=== PATIENT | female | born 1950 | race Caucasian/White ===

== ENCOUNTER 2016-07-05 08:04 | Day surgery (SDC) | payer OTHER, MEDICARE ==
[~2016-07-05 08:04] MED LIST: SKIN ADHESIVE (DERMABOND) 1 EACH TP ONE
[2016-07-05] MEDS ORDERED: LIDOCAINE 1% 5 ML SDV ONE (08:54)
[2016-07-05] MEDS ORDERED: LIDO/BUPIVA 10ML SYR IU ONE (10:30)
[2016-07-05] MEDS ORDERED: ceFAZolin 2 GM/DEXTROSE 100 ML IV ONE (10:30)
[2016-07-05] MEDS ORDERED: CHLORHEXIDINE GLUC HIBICLENS 118 ML BTL TP ONE (10:30)
[2016-07-05] MEDS ORDERED: LIDO/BUPIVA/morphINE 15ML SYR IU ONE (10:30)
[2016-07-05] MEDS ORDERED: MIDAZOLAM 2 MG/2 ML VIAL ONE (10:35)
[2016-07-05] MEDS ORDERED: PROPOFOL 200 MG/20 ML VIAL ONE (10:37)
[2016-07-05] MEDS ORDERED: fentaNYL 100 MCG/2 ML INJ ONE (10:37)
[2016-07-05] MEDS ORDERED: DEXAMETHASONE 4 MG/ML VIAL ONE (10:40)
[2016-07-05] MEDS ORDERED: ONDANSETRON 4 MG/2 ML VIAL ONE (10:40)
[2016-07-05] MEDS ORDERED: ROCURONIUM 50 MG/5 ML VIAL ONE (10:40)
[2016-07-05] MEDS ORDERED: ROPIVACAINE HCL 150 MG/30 ML INJ ONE (10:41)
[2016-07-05] MEDS ORDERED: epHEDrine SULFATE 10 MG/ML SYR ONE ×2 (11:25)
[2016-07-05] MEDS ORDERED: EPINEPHrine 30 MG/30 ML MDV ONE (13:35)
--- NOTE | 2016-07-06 05:26 | GOP ---
[f rep st] OPERATIVE REPORT DATE OF OPERATION: 07/05/2016 SURGEON: Avinash Moyer MD GRID OPERATOR: Tavares Pickens MD, it should be noted no qualified resident was available. community relations assistant was necessary to assist with the biceps tenodesis and repair of the rotator cuff. No qualified resident available. ANESTHESIA: General with interscalene block, Dr. Grossman. PREOPERATIVE DIAGNOSIS: Left shoulder rotator cuff tear, impingement, acromioclavicular joint inflammation and biceps tendinitis. POSTOPERATIVE DIAGNOSIS: Left shoulder rotator cuff tear, impingement, acromioclavicular joint inflammation and biceps tendinitis. PROCEDURE PERFORMED: 1. Arthroscopic repair of rotator cuff utilizing a double row construct. CPT code 11929. 2. Arthroscopic subacromial decompression. CPT code 27354. 3. Arthroscopic distal clavicle excision. CPT code 87991. 4. A mini opened subpectoral biceps tenodesis. CPT code 29153. FINDINGS: 1. Intact articular cartilage of humeral head and glenoid. 2. Intact labrum with fraying of the superior labrum. 3. A bulbous frayed proximal biceps tendon with inflammation. 4. A degenerative tear of the rotator cuff, full-thickness with multiple layers of the tear. 5. Moderate subacromial bursitis with downsloping anterior acromion. 6. Tight acromioclavicular joint. INDICATIONS: Patient is a 66-year-old, with persistent left shoulder pain. The patient had imaging and examination consistent with a rotator cuff tear, impingement, acromioclavicular joint inflammation, biceps tendinitis. Patient had options discussed and desired to go ahead with the repair of the rotator cuff, subacromial decompression, distal clavicle excision, evaluation of biceps likely biceps tenodesis. Patient understood the potential risks and benefits, including, but not limited to, bleeding, infection, persistent pain, stiffness, anesthetic risks. DESCRIPTION OF PROCEDURE: The patient was taken to the operating room. After undergoing successful general anesthesia and interscalene block, the patient was placed in a beach chair position. The left upper extremity was prepped and draped in the usual sterile manner. Anatomic landmarks were identified. The anterior and posterior portal sites were injected with 0.25% Marcaine and 1% lidocaine. The subacromial space was injected with the same. Posterior portal was made. Arthroscope placed in the joint. With the arthroscope in the joint the anterior portal was made. The probe was placed. The findings are as described above. The tear of the rotator cuff was identified. The lateral portal was made. The undersurface tear was debrided. The greater tuberosity was decorticated. Next, the biceps tendon was very bulbous and demonstrated the fraying and degenerative changes. Once the tenodesis was done, arthroscope was taken out. Anterior axillary incision was made. The pectoralis was reflected superiorly. Bicipital groove was curetted. A 2.9 mm juggernaut suture anchor was placed. This had two #2 MaxBraid sutures. These were placed through and around the biceps tendon. The biceps was subsequently cut just about the tenodesis site and arthroscope placed back in the joint. The biceps was cut at its attachment on the superior labrum. This was debrided. Next, the arthroscope was placed in subacromial space. A bursectomy was performed. The bursectomy was performed followed by the subacromial decompression, beginning lateral, anterolateral, extending anteromedial. The acromion was made flat. Next, the distal clavicle was excised in a similar fashion with the acromionizer bur through the lateral and anterior portals. Approximately 6-8 mm of the bone was taken off. The superior and posterior ligaments remained intact. Following this, the rotator cuff was evaluated and this had some delaminated areas of tear, with several layers, thus several anchors were utilized for this. There were approximately 3 anchors utilized. The anchors were placed in the medial 3rd of the greater tuberosity and placed through some of the delaminated areas. These were placed and then tied down. These were place through with a Waygo suture passing device as well as the bird beak. Following the tying of these with the medial row, the sutures were brought over laterally and fixed with 2 of the [employer] Quattro anchors. This allowed double row fixation. The tissue was of fair quality. The repair was good. This was completed. The area was irrigated. Portal sites closed using 3-0 nylon suture. Anterior axillary incision closed using 3-0 Monocryl followed by running 3-0 Prolene. The patient's subacromial space was injected with 0.25% Marcaine and 1% lidocaine, 5 mg of Duramorph. A sterile dressing was placed. The patient was placed in a sling with abduction pillow. Patient was awakened and taken to the recovery room in stable condition. Sponge, needle, and instrument counts were correct. PATIENT POSITION: Beach chair. PLAN: The patient will undergo physical therapy, emphasis on range of motion and strengthening according to protocol. The patient will remain in a sling 6 weeks. Follow [facility] rotator cuff protocol. /[id number]/MODL MTDD
--- NOTE | 2016-07-06 07:57 | CPEKG ---
Heart Rate: 83 RR Interval: 723 P-R Interval: 180 QRSD Interval: 82 QT Interval: 396 QTC Interval: 466 P [place]: 79 QRS [place]: 25 T Wave [place]: -4 EKG Severity - BORDERLINE ECG - EKG Impression: SINUS RHYTHM EKG Impression: LOW VOLTAGE THROUGHOUT EKG Impression: BORDERLINE R WAVE PROGRESSION, ANTERIOR LEADS Electronically Signed By: Krzysztof Flores 06-Jul-2016 10:22:57
== END 2016-07-05 17:30 | disposition home or self-care (01) ==
LOC: FSGY 08:04
PROVIDERS: ATTEND Orthopaedic Surgery Sports Medicine
PROC: 0LQ24ZZ Repair Left Shoulder Tendon, Percutaneous Endoscopic Approach (ICD-10-PCS; principal; 2016-07-05 09:45)
PROC: 0MB24ZZ Excision of Left Shoulder Bursa and Ligament, Percutaneous Endoscopic Approach (ICD-10-PCS; principal; 2016-07-05 09:45)
PROC: 0PBB4ZZ Excision of Left Clavicle, Percutaneous Endoscopic Approach (ICD-10-PCS; principal; 2016-07-05 09:45)
PROC: 0LM20ZZ Reattachment of Left Shoulder Tendon, Open Approach (ICD-10-PCS; principal; 2016-07-05 09:45)
DX: M75.42 Impingement syndrome of left shoulder (principal); M75.22 Bicipital tendinitis, left shoulder; M75.102 Unspecified rotator cuff tear or rupture of left shoulder, not specified as traumatic; Z53.33 Arthroscopic surgical procedure converted to open procedure; I10 Essential (primary) hypertension; E03.9 Hypothyroidism, unspecified; E78.5 Hyperlipidemia, unspecified; Z90.49 Acquired absence of other specified parts of digestive tract; Z87.19 Personal history of other diseases of the digestive system
CPT/HCPCS: C1713; J0690; J1100; J2250; J2274; J2405; J2704; J2795; J3010

== ENCOUNTER → 2017-07-09 | Outpatient (CLI) | payer OTHER, MEDICARE | LOC: BRMIMAGING 10:22 | PROVIDERS: ATTEND Family Medicine | DX: Z12.31 Encounter for screening mammogram for malignant neoplasm of breast (principal); Z13.820 Encounter for screening for osteoporosis; M81.0 Age-related osteoporosis without current pathological fracture; Z78.0 Asymptomatic menopausal state ==